=== PATIENT | female | born 1965 | race Caucasian/White ===

== ENCOUNTER → 2016-11-13 | Outpatient (REF) | LOC: ZLAB.WCH 16:00 | DX: Z01.89 Encounter for other specified special examinations (principal) ==

== ENCOUNTER → 2018-03-29 | Outpatient (CLI) | payer BC | LOC: MC.RAD 11:10 | DX: Z12.31 Encounter for screening mammogram for malignant neoplasm of breast (principal) ==

== ENCOUNTER 2023-01-05 07:32 | Day surgery (SDC) | payer BC ==
[~2023-01-05] VITALS: Ht 167.6 cm; Wt 61.1 kg
[2023-01-05 08:44] VITALS: BP 120/85; PULSE 85; TEMP 97.9
[2023-01-05] MEDS ORDERED: MASON NATURAL2000 IU PO (08:47)
[2023-01-05] MEDS ORDERED: SYNTHROID0.1 MG/TAB PO (08:47)
[2023-01-05] MEDS ORDERED: OSCAL 500 TAB500 MG PO (08:48)
[2023-01-05] MEDS ORDERED: MULTI VITAMINS1 TAB PO (08:48)
[2023-01-05] MEDS ORDERED: RIZATRIPTAN PO (08:49)
[2023-01-05 09:00] VITALS: BP 118/56; PULSE 75; TEMP 97
[2023-01-05 09:15] VITALS: BP 117/55; PULSE 67
[2023-01-05 09:42] VITALS: BP 102/68; PULSE 63; TEMP 97
--- NOTE | 2023-01-05 09:57 | NUR ---
0900-PATIENT ARRIV[place] [facility] [place]ART, TRANSFERRED WITH SBA TO RECLINER. REPORT TAKEN FROM MAXIMILIAN ZIMMER. VITAL SIGNS TAKEN, VSS. PATIENT'S FRIEND BROUGHT TO BEDSIDE, DISCHARGE INSTRUCTIONS REVIEWED. WATER GIVEN TO PATIENT PER REQUEST, TOLERATED PO INTAKE WELL. DENIES NAUSEA, C/O MINIMAL BLOATING AND DISCOMFORT. 927-IV SITE DISCONTINUED, CATHETER TIP INTACT. PRESSURE HELD AND DRESSING APPLIED. 09-PATIENT DRESSED INDEPENDENTLY. PATIENT DISCHARGED TO [facility] ACCOMPANIED BY FRIEND VIA WHEELCHAIR. ALL BELONINGS WITH PT AT TIME OF DISCHARGE.
[2023-01-05 10:00] VITALS: BP 107/70; PULSE 64
--- NOTE | 2023-01-05 10:44 | NUR ---
0942-PATIENT ADMITT[place] [facility] [place], TRANSFERRED IN RECLINER WITH SBA. REPORT RECEIVED FROM MAXIMILIAN ZIMMER. VITAL SIGNS TAKEN, VSS. PATIENT'S SPOUSE BROUGHT TO BEDSIDE. WATER AND BUTTERED TOAST GIVEN, PATIENT TOLERATING PO INTAKE. [id number]. ARDON AT BEDSIDE FOR UPDATE 1018-IV SITE DISCONTINUED, CATHETER TIP INTACT. PRESSURE HELD AND BANDAGE APPLIED. DISCHARGE INSTRUCTIONS REVIEWED WITH PT AND SPOUSE. 1023-PATIENT DISCHARGED HOME TO [facility] VIA WHEELCHAIR, ACCOMPANIED BY SPOUSE. ALL BELONGINGS WITH PT AT TIME OF DISCHARGE.
== END 2023-01-05 10:23 | disposition home or self-care (01) ==
LOC: SDCO 07:32
DX: Z12.11 Encounter for screening for malignant neoplasm of colon (principal); K64.0 First degree hemorrhoids; Z86.16 Personal history of COVID-19
CPT/HCPCS: J2704; J3010; J7120

== ENCOUNTER → 2024-01-05 | Outpatient (REF) ==
[~2024-01-05] MED LIST: MASON NATURAL2000 IU PO; MULTI VITAMINS1 TAB PO; OSCAL 500 TAB500 MG PO; RIZATRIPTAN PO; SYNTHROID0.1 MG/TAB PO
== END ==
LOC: COL.CARD 13:55
DX: Z01.810 Encounter for preprocedural cardiovascular examination (principal)

== ENCOUNTER → 2024-01-06 | Outpatient (CLI) | payer BC | LOC: COL.VAS 09:00 | DX: I07.1 Rheumatic tricuspid insufficiency (principal) ==